=== PATIENT | female | born 1960 | race Caucasian/White ===

== ENCOUNTER 2021-04-19 15:07 | Emergency (ER) | payer OTHER ==
--- NOTE | 2021-04-19 17:30 | ED ---
General Adult HPI - General Stated complaint: Blood Clot Time Seen by Provider: 04/19/21 17:26 - History of Present Illness Initial comments: 61 year-old female patient presents to the emergency department for evaluation of bilateral lower leg pain and swelling. She did recently have long flights. She is concerned about blood clots. Denies fever or chills. 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 Denies taking blood thinners currently. Denies history of alcohol or tobacco use. - Related Data Home Medications Medication Instructions Recorded Confirmed Acetaminophen Tab [Tylenol Tab] 500 mg PO Q6H PRN 04/19/21 04/19/21 Ascorbic Acid [Vitamin C] 1,000 mg PO DAILY 04/19/21 04/19/21 Cyanocobalamin [Vitamin B-12 1,000 mcg SQ Q30D 04/19/21 04/19/21 Injection] FLUoxetine HCL [PROzac] 20 mg PO DAILY 04/19/21 04/19/21 HYDROcodone/APAP 5-325MG [[place] 1 tab PO QID PRN 04/19/21 04/19/21 5-325] Melatonin 20 mg PO HS 04/19/21 04/19/21 Multivitamins, Thera [Multivitamin 1 tab PO DAILY 04/19/21 04/19/21 (formulary)] Naproxen Sodium [Aleve] 220 mg PO BID 04/19/21 04/19/21 Vitamin B Complex 1 cap PO DAILY 04/19/21 04/19/21 Vitamin E 400 unit PO DAILY 04/19/21 04/19/21 Zinc 50 mg PO DAILY 04/19/21 04/19/21 hydroCHLOROthiazide [Hydrodiuril] 25 mg PO DAILY 04/19/21 04/19/21 Previous Rx's Medication Instructions Recorded Potassium Chloride ER [K-Dur 10] 10 meq PO DAILY #10 tab 04/19/21 Allergies Allergy/AdvReac Type Severity Reaction Status Date / Time No Known Allergies Allergy Verified 04/19/21 19:14 Review of Systems ROS Statement: Those systems with pertinent positive or pertinent negative responses have been documented in the HPI. ROS Other: All systems not noted in ROS Statement are negative. General Exam General appearance: alert, in no apparent distress, other (This is a well- nourished adult female patient in no acute distress.) ENT exam: Present: normal exam, normal oropharynx, mucous membranes moist Respiratory exam: Present: normal lung sounds bilaterally. Absent: respiratory distress, wheezes, rales, rhonchi, stridor Cardiovascular Exam: Present: regular rate, normal rhythm, normal heart sounds. Absent: systolic murmur, diastolic murmur, rubs, gallop, clicks GI/Abdominal exam: Present: soft, normal bowel sounds. Absent: distended, tenderness, guarding, rebound, rigid Extremities exam: Present: full ROM, normal capillary refill, other (There is 2+ pitting edema noted to the bilateral lower legs and feet. Skin is otherwise warm, pink, and dry. Pedal and posttibial pulses 2+.). Absent: tenderness, pedal edema, joint swelling, calf tenderness Neurological exam: Present: alert, oriented X3, CN II-XII intact Psychiatric exam: Present: normal affect, normal mood Skin exam: Present: warm, dry, intact, normal color. Absent: rash Course Vital Signs 04/19/21 04/19/21 17:20 21:02 Temperature 99.1 F Pulse Rate 97 104 H Respiratory 20 Rate Blood Pressure 178/102 151/99 O2 Sat by Pulse 100 96 Oximetry EKG Findings - EKG Comments: EKG Findings:: EKG obtained at 1843 shows sinus rhythm with, ventricular rate is 91, KY interval 158, QRS duration 92, QTc 446, QTC 548. No evidence of ST elevation or depression. Medical Decision Making - Medical Decision Making 61-year-old female patient presents for evaluation of bilateral lower extremity swelling and pain. She is concerned she may have blood clot. Physical examination did reveal 2+ pitting edema. EKG showed normal sinus rhythm. Potassium is 3.0. BNP elevated at 2550. Chest x-ray shows no pulmonary vascular congestion or cardiomegaly. She tested negative for bilateral lower extremity ultrasound Dopplers for DVT. I did discuss findings and results with her. She given a dose of Lasix here. Potassium will be replaced virtually put on 10 mEq of Dana Dur for the next 7-10 days. She is instructed to follow-up with forensic sergeant for echocardiogram and further evaluation of her elevated BNP. She is given ART hose. Instructed to keep her legs elevated. Return parameters were discussed in detail. She verbalizes understanding and agrees with this plan. My attending is Dr. Macias. - Lab Data Result diagrams: 04/19/21 20:39 04/19/21 20:39 Lab Results 04/19/21 04/19/21 04/19/21 Range/Units 20:39 20:39 20:39 WBC 6.6 (3.8-10.6) k/uL RBC 4.20 (3.80-5.40) m/uL Hgb 13.5 (11.4-16.0) gm/dL Hct 40.9 (34.0-46.0) % MCV 97.5 (80.0-100.0) fL MCH 32.2 (25.0-35.0) pg MCHC 33.1 (31.0-37.0) g/dL RDW 13.3 (11.5-15.5) % Plt Count 281 (150-450) k/uL MPV 8.0 Neutrophils % 59 % Lymphocytes % 29 % Monocytes % 5 % Eosinophils % 4 % Basophils % 1 % Neutrophils # 3.9 (1.3-7.7) k/uL Lymphocytes # 1.9 (1.0-4.8) k/uL Monocytes # 0.3 (0-1.0) k/uL Eosinophils # 0.2 (0-0.7) k/uL Basophils # 0.0 (0-0.2) k/uL Sodium 135 L (137-145) mmol/L Potassium 3.0 L (3.5-5.1) mmol/L Chloride 95 L (98-107) mmol/L Carbon Dioxide 27 (22-30) mmol/L Anion Gap 13 mmol/L BUN 20 H (7-17) mg/dL Creatinine 0.57 (0.52-1.04) mg/dL Est GFR (CKD-EPI)AfAm >90 (>60 ml/min/1.73 sqM) Est GFR (CKD-EPI)NonAf >90 (>60 ml/min/1.73 sqM) Glucose 102 H (74-99) mg/dL Calcium 9.3 (8.4-10.2) mg/dL Total Bilirubin 1.3 (0.2-1.3) mg/dL AST 35 (14-36) U/L ALT 27 (4-34) U/L Alkaline Phosphatase 178 H (38-126) U/L NT-Pro-B Natriuret Pep 2550 pg/mL Total Protein 6.5 (6.3-8.2) g/dL Albumin 3.8 (3.5-5.0) g/dL - Radiology Data Radiology results: report reviewed, image reviewed 2 views of the chest are obtained. Report was reviewed in its entirety. Impression by Dr. Haskins shows no active cardiopulmonary disease. Normal heart. Venous Doppler duplex of the bilateral lower extremities is obtained. Report was reviewed in its entirety. Impression by Dr. Haskins shows no evidence of DVT in the veins admission at this time. Disposition Clinical Impression: Lower extremity edema, Elevated brain natriuretic peptide (BNP) level Disposition: HOME SELF-CARE Condition: Good Instructions (If sedation given, give patient instructions): Leg Edema (ED) Additional Instructions: Take potassium supplement. Follow-up with cardiology as soon as possible. You are BNP level was 2500. Limit fluids. Follow-up with your primary care physician for recheck in 1-2 days. Return for any new, worsening, or concerning symptoms. Prescriptions: Potassium Chloride ER [K-Dur 10] 10 meq PO DAILY #10 tab Is patient prescribed a controlled substance at d/c from ED?: No Referrals: Dereje Bullock MD [STAFF PHYSICIAN] - 1-2 days Time of Disposition: 22:31
[2021-04-19 17:31] VITALS: TEMP 99.1
--- NOTE | 2021-04-19 19:25 | US ---
EXAMINATION TYPE: US venous doppler duplex LE DATE OF EXAM: 04/19/2021 6:43 PM COMPARISON: NONE CLINICAL HISTORY: sylvester leg pain and swelling. Leg pain and swelling. Hx DVT, PE. Patient not taking bl ood thinners. SIDE PERFORMED: Bilateral TECHNIQUE: The lower extremity deep venous system is examined utilizing real time linear array sonog derrek with graded compression, doppler sonography and color-flow sonography. VESSELS IMAGED: Common Femoral Vein Deep Femoral Vein Greater Saphenous Vein * Femoral Vein Popliteal Vein Small Saphenous Vein * Proximal Calf Veins (* superficial vessels) Exam is slightly limited due to edema. Right Leg: No evidence of DVT in veins imaged at this time. Left Leg: Hypoechoic, heterogeneous area seen within the left groin anterior to the common femoral v essels measuring 1.9 x 1.5 x 0.8 cm. No evidence of DVT in veins imaged at this time. IMPRESSION: No sign of deep vein thrombosis in both legs.
--- NOTE | 2021-04-19 20:35 | XR ---
EXAMINATION TYPE: XR chest 2V DATE OF EXAM: 04/19/2021 COMPARISON: NONE HISTORY: Swelling TECHNIQUE: 2 view FINDINGS: There is no heart failure nor confluent pneumonic infiltrate. Costophrenic angles are clear . Bony thorax is intact. IMPRESSION: No active cardiopulmonary disease. Normal heart.
[2021-04-19 20:50] LABS: Basophils % (A) 1 %; Eosinophils # (A) 0.2 k/uL (0-0.7); Eosinophils % (A) 4 %; HCT 40.9 % (34.0-46.0); HGB 13.5 gm/dL (11.4-16.0); Lymphocytes # (A) 1.9 k/uL (1.0-4.8); Lymphocytes % (A) 29 %; MCH 32.2 pg (25.0-35.0); MCHC 33.1 g/dL (31.0-37.0); MCV 97.5 fL (80.0-100.0); Monocytes # (A) 0.3 k/uL (0-1.0); Monocytes % (A) 5 %; Neutrophils # (A) 3.9 k/uL (1.3-7.7); Neutrophils % (A) 59 %; Platelet Count 281 k/uL (150-450); RDW 13.3 % (11.5-15.5); WBC 6.6 k/uL (3.8-10.6)
[2021-04-19 21:01] LABS: ALT 27 U/L (4-34); AST 35 U/L (14-36); African American GFR (CKD) >90 (>60 ml/min/1.73 sqM); Albumin 3.8 g/dL (3.5-5.0); Alkaline Phosphatase 178 U/L (38-126); Anion Gap 13 mmol/L; Blood Urea Nitrogen 20 mg/dL (7-17); Calcium 9.3 mg/dL (8.4-10.2); Carbon Dioxide 27 mmol/L (22-30); Chloride 95 mmol/L (98-107); Glucose 102 mg/dL (74-99); Non-African American GFR(CKD) >90 (>60 ml/min/1.73 sqM); Sodium 135 mmol/L (137-145); Total Bilirubin 1.3 mg/dL (0.2-1.3); Total Protein 6.5 g/dL (6.3-8.2)
[2021-04-19] MEDS ORDERED: POTASSIUM CHLORIDE ER 20 MEQ TAB.ER PO STA (21:15)
[2021-04-19] MEDS ORDERED: FUROSEMIDE 40 MG TAB PO STA (22:31)
[2021-04-19 23:21] VITALS: BP 153/87; PULSE 101; RESP 18
== END 2021-04-19 23:21 | disposition home or self-care (01) ==
LOC: EC 15:07
DX: R60.0 Localized edema (principal); R79.0 Abnormal level of blood mineral
CPT/HCPCS: 36415; 71046; 80053; 83880; 85025; 93005; 93970; 99284

== ENCOUNTER 2021-04-20 03:29 | Inpatient (IN) | payer OTHER ==
[2021-04-20] MEDS ORDERED: LORazepam 2 MG/ML INJ IV STA (05:05)
--- NOTE | 2021-04-20 05:15 | ED ---
Chest Pain HPI - General Chief Complaint: Chest Pain Stated Complaint: recheck Time Seen by Provider: 04/20/21 03:42 Source: patient, EMS Mode of arrival: EMS Limitations: no limitations - History of Present Illness Initial Comments: This patient is a 61-year-old woman who returns emergency department for reevaluation this morning. She had been seen yesterday in the evening for bilateral leg edema, had studies and then cleared to return [place] see [place] physician [place]. The patient states that starting this morning between 1 and 2 AM she developed severe pressure in the substernal area. This occurred at rest. She stated that after a little bit it seemed to radiate into her neck. The patient reports that her blood pressure home was also elevated. They phoned EMS who arrived and the patient was still having pain. The transported her here but she states the pain had resolved prior to her arrival here. She also was having some shortness of breath. Patient denies other symptoms. The patient notes that she does have history of some mitral regurgitation from her last echocardiogram. She also had a heart catheteriza tion probably about a year ago and was told that she had essentially normal coronary arteries. MD Complaint: chest pain -: hour(s) Onset: during rest Pain Location: substernal Severity: severe Quality: aching Consistency: now resolved Improves With: nothing Worsens With: nothing Treatments Prior to Arrival: oxygen - Related Data Home Medications Medication Instructions Recorded Confirmed Acetaminophen Tab [Tylenol Tab] 500 mg PO Q6H PRN 04/19/21 04/19/21 Ascorbic Acid [Vitamin C] 1,000 mg PO DAILY 04/19/21 04/19/21 Cyanocobalamin [Vitamin B-12 1,000 mcg SQ Q30D 04/19/21 04/19/21 Injection] FLUoxetine HCL [PROzac] 20 mg PO DAILY 04/19/21 04/19/21 HYDROcodone/APAP 5-325MG [[place] 1 tab PO QID PRN 04/19/21 04/19/21 5-325] Melatonin 20 mg PO HS 04/19/21 04/19/21 Multivitamins, Thera [Multivitamin 1 tab PO DAILY 04/19/21 04/19/21 (formulary)] Naproxen Sodium [Aleve] 220 mg PO BID 04/19/21 04/19/21 Vitamin B Complex 1 cap PO DAILY 04/19/21 04/19/21 Vitamin E 400 unit PO DAILY 04/19/21 04/19/21 Zinc 50 mg PO DAILY 04/19/21 04/19/21 hydroCHLOROthiazide [Hydrodiuril] 25 mg PO DAILY 04/19/21 04/19/21 Previous Rx's Medication Instructions Recorded Potassium Chloride ER [K-Dur 10] 10 meq PO DAILY #10 tab 04/19/21 Allergies Allergy/AdvReac Type Severity Reaction Status Date / Time No Known Allergies Allergy Verified 04/19/21 19:14 Review of Systems ROS Statement: Those systems with pertinent positive or pertinent negative responses have been documented in the HPI. ROS Other: All systems not noted in ROS Statement are negative. Constitutional: Denies: fever, chills Respiratory: Reports: dyspnea. Denies: cough Cardiovascular: Reports: as per HPI, chest pain. Denies: palpitations, orthopnea, edema, syncope Gastrointestinal: Denies: abdominal pain, vomiting, diarrhea, melena, hematochezia Genitourinary: Denies: dysuria, hematuria Musculoskeletal: Denies: back pain Skin: Denies: rash Neurological: Denies: headache, weakness, numbness Psychiatric: Reports: anxiety EKG Findings - EKG Results: EKG: interpreted by ERMD, sinus rhythm (Rate 91 bpm), normal axis, normal ST/T - Blocks, Ber[place], Hypertrophy, ST Abn: Chamber hypertrophy or enlargement: left atrial enlargement or conduction defect, right atrial enlargement or conduction defect, left ventricular hypertrophy or enlargement (LVE) Repolarization changes or abnormalities: Q-T interval prolongation Past Medical History Additional Past Medical History / Comment(s): Pluery, rotator cuff tear in the left, breast augmentation implant removal, blood clots, basal skin CA History of Any Multi-Drug Resistant Organisms: None Reported Past Surgical History: Cholecystectomy, Hysterectomy, Orthopedic Surgery Additional Past Surgical History / Comment(s): breast augmentation implant removal, bunions removed, cosmetic surgeries. Past Psychological History: Anxiety, Depression Smoking Status: Never smoker Past Alcohol Use History: Occasional Past Drug Use History: None Reported General Exam Limitations: no limitations General appearance: alert, in no apparent distress, anxious Head exam: Present: atraumatic, normocephalic Eye exam: Present: normal appearance. Absent: scleral icterus, conjunctival injection ENT exam: Present: mucous membranes dry Neck exam: Present: normal inspection Respiratory exam: Present: normal lung sounds bilaterally. Absent: respiratory distress, wheezes, rales, rhonchi, stridor Cardiovascular Exam: Present: regular rate, normal rhythm, systolic murmur (Grade 3/6 systolic ejection murmur). Absent: diastolic murmur, rubs, gallop GI/Abdominal exam: Present: soft. Absent: distended, tenderness, guarding, rebound, rigid, mass Extremities exam: Present: normal inspection, normal capillary refill, pedal edema (Trace edema bilaterally). Absent: calf tenderness Back exam: Present: normal inspection. Absent: CVA tenderness (R), CVA tenderness (L) Neurological exam: Present: alert Skin exam: Present: warm, dry, intact, normal color. Absent: rash Course Vital Signs 04/20/21 04/20/21 04/20/21 03:32 04:29 05:15 Temperature 98.0 F Pulse Rate 107 H 102 H 101 H Respiratory 18 18 18 Rate Blood Pressure 131/85 130/85 144/77 O2 Sat by Pulse 98 96 98 Oximetry 04/20/21 06:41 Temperature Pulse Rate 101 H Respiratory 18 Rate Blood Pressure 133/93 O2 Sat by Pulse 96 Oximetry Chest Pain MDM - MDM Patient is 61-year-old woman here following episode of chest pain that appears to have resolved. She does have minimally elevated troponin. In light of this, patient be admitted under city call. Case also discussed with cardiology on-call, and recommendations are incorporated. Patient is started on heparin. Echocardiogram ordered. Patient remained symptom-free here. Disposition Clinical Impression: Acute coronary syndrome Disposition: ADMITTED IP TO THIS HOSP Is patient prescribed a controlled substance at d/c from ED?: No Referrals: Nonstaff,Physician [Primary Care Provider] - 1-2 days
--- NOTE | 2021-04-20 05:18 | XR ---
EXAMINATION TYPE: XR chest 1V portable DATE OF EXAM: 04/20/2021 COMPARISON: Yesterday HISTORY: Swelling. TECHNIQUE: Single view FINDINGS: There is no heart failure nor confluent pneumonic infiltrate. Costophrenic angles are clear . There are chest leads. There are no hilar masses. Bony thorax is intact. IMPRESSION: No active cardiopulmonary disease. No change.
[2021-04-20 05:28] LABS: Basophils % (A) 1 %; Eosinophils # (A) 0.2 k/uL (0-0.7); Eosinophils % (A) 4 %; HCT 39.6 % (34.0-46.0); HGB 13.6 gm/dL (11.4-16.0); Lymphocytes # (A) 1.5 k/uL (1.0-4.8); Lymphocytes % (A) 27 %; MCH 32.5 pg (25.0-35.0); MCHC 34.5 g/dL (31.0-37.0); MCV 94.3 fL (80.0-100.0); Mean Platelet Volume 8.6; Monocytes # (A) 0.4 k/uL (0-1.0); Monocytes % (A) 7 %; Neutrophils # (A) 3.3 k/uL (1.3-7.7); Neutrophils % (A) 59 %; Platelet Count 270 k/uL (150-450); RDW 12.6 % (11.5-15.5); WBC 5.6 k/uL (3.8-10.6)
[2021-04-20 05:39] LABS: ALT 27 U/L (4-34); AST 35 U/L (14-36); African American GFR (CKD) >90 (>60 ml/min/1.73 sqM); Albumin 3.7 g/dL (3.5-5.0); Alkaline Phosphatase 196 U/L (38-126); Amylase 38 U/L (30-110); Anion Gap 10 mmol/L; Blood Urea Nitrogen 21 mg/dL (7-17); Calcium 9.5 mg/dL (8.4-10.2); Carbon Dioxide 30 mmol/L (22-30); Chloride 96 mmol/L (98-107); Glucose 114 mg/dL (74-99); Lipase 120 U/L (23-300); Magnesium 1.4 mg/dL (1.6-2.3); Non-African American GFR(CKD) >90 (>60 ml/min/1.73 sqM); Sodium 136 mmol/L (137-145); Total Bilirubin 1.6 mg/dL (0.2-1.3); Total Protein 6.5 g/dL (6.3-8.2)
[2021-04-20] MEDS ORDERED: HEPARIN SODIUM 1,000 UN/ML (10ML VL) IV PRN (06:02)
[2021-04-20] MEDS ORDERED: HEPARIN SODIUM 1,000 UN/ML (10ML VL) IV ONE (06:02)
[2021-04-20] MEDS ORDERED: HEPARIN SOD,PORK IN 0.45% NACL 25,000 UNIT in 0.45% NACL 1 250ML.BAG IV SCH (06:15)
[2021-04-20 06:16] LABS: Partial Thromboplastin Time 22.9 sec (22.0-30.0); Prothrombin Time 10.9 sec (9.0-12.0)
[2021-04-20] MEDS ORDERED: MAGNESIUM SULFATE-D5W PMX 1 GM in DEXTROSE/WATER 1 100ML.BAG IVPB ONE (06:18)
[2021-04-20] MEDS ORDERED: POTASSIUM BICARBONATE/CIT AC 20 MEQ TABLET.EFF PO ONE (06:18)
[2021-04-20] MEDS ORDERED: NITROGLYCERIN SL TABS 0.4 MG TAB SUBLINGUAL PRN (06:51)
[2021-04-20] MEDS ORDERED: POTASSIUM BICARB-CITRIC ACID 25 MEQ TABLET.EFF PO ONE (07:30)
[2021-04-20] MEDS ORDERED: ALPRAZolam 0.25 MG TAB PO PRN (09:07)
[2021-04-20] MEDS ORDERED: ALPRAZolam 0.5 MG TAB PO PRN (09:07)
[2021-04-20] MEDS ORDERED: ATORVASTATIN 80 MG TAB PO STA (09:07)
[2021-04-20] MEDS: SODIUM CHLORIDE 0.9% 1,000 ML IV SCH (09:29)
--- NOTE | 2021-04-20 09:32 | ECHOF ---
Referral Reason:Acute coronary syndrome MEASUREMENTS -------- HEIGHT: 165.1 cm WEIGHT: 87.5 kg BP: RVIDd: 2.9 cm (< 3.3) IVSd: 1.8 cm (0.6 - 1.1) LVIDd: 3.7 cm (3.9 - 5.3) LVPWd: 2.4 cm (0.6 - 1.1) IVSs: 1.9 cm LVIDs: 3.6 cm LVPWs: 2.1 cm LA Diam: 3.9 cm (2.7 - 3.8) Ao Diam: 2.1 cm (2.0 - 3.7) FINDINGS -------- Sinus rhythm. TDS study pt has siclone breast inplants unable to get gradients on lvot and Aov. There is severe concentric left ventricular hypertrophy. Overall left ventricular systolic function is normal with, an EF between 60 - 65 %. The right ventricle is normal in size. The left atrium is mildly dilated. The right atrial size is normal. 5.0mg OF Lumason UTLIZED: 2 OR MORE WALL SEGMENTS NOT VISUALIZED. The aortic valve was not well visualized. The mitral valve was not well visualized. Mild mitral regurgitation is present. The tricuspid valve was not well visualized. Unable to estimate RVSP due to inadequate TR jet spect ral doppler profile. The pulmonic valve was not well visualized. CONCLUSIONS -------- 1. TDS study pt has siclone breast inplants unable to get gradients on lvot and Aov. 2. There is severe concentric left ventricular hypertrophy. 3. Overall left ventricular systolic function is normal with, an EF between 60 - 65 %. 4. The right ventricle is normal in size. 5. The left atrium is mildly dilated. 6. The right atrial size is normal. 7. 5.0mg OF Lumason UTLIZED: 2 OR MORE WALL SEGMENTS NOT VISUALIZED. 8. The aortic valve was not well visualized. 9. The mitral valve was not well visualized. 10. Mild mitral regurgitation is present. 11. The tricuspid valve was not well visualized. 12. Unable to estimate RVSP due to inadequate TR jet spectral doppler profile. 13. The pulmonic valve was not well visualized. MULTIPLE SPINDLE SCREW MACHINE OPERATOR: Komal Lora RDCS
[2021-04-20] MEDS ORDERED: ASPIRIN 325 MG TAB PO STA (09:46)
[2021-04-20] MEDS ORDERED: VERAPAMIL 2.5 MG/ML 2 ML AMP ONE (09:55)
[2021-04-20] MEDS ORDERED: LIDOCAINE 1% INJ 10MG/ML (20 ML MDV) ONE (09:55)
[2021-04-20] MEDS: SODIUM CHLORIDE 0.9% 1,000 ML in EMPTY BAG 1 BAG IV SCH ×2 (10:01→21:19)
[2021-04-20] MEDS ORDERED: Potassium Replacement Protocol 1 EACH MISC MISCELLANE PRN (10:07)
--- NOTE | 2021-04-20 10:15 | CONS ---
CONSULTATION CHIEF COMPLAINT: Chest pain. Ssuanne is a 61-year-old lady with history of hypertension, anxiety, depression and chronic back pain who lives in [place] but is visiting [place], as her uncle . She comes into hospital complaining of bilateral leg edema. She also complains of chest discomfort. Her chest pain is sharp, precordial, moderate intensity, a pressure-like sensation that radiated to her neck. She was initially in the emergency room with bilateral leg edema, went home and then came back again with chest pain. EKG shows sinus rhythm with nonspecific ST-T wave changes. Labs showed that her troponin is elevated at 0.2, BNP is elevated at 3000. Creatinine is normal at 0.7. Hemoglobin is normal at 13.6 with a platelet count of 270. At the time of my evaluation this morning, she appears comfortable at rest, hemodynamically stable and is chest-pain- free. Given her chest pain and elevated troponin, I am advising the patient to undergo cardiac catheterization to rule out significant obstructive CAD. She was explained risks, benefits and alternatives, understood and accepted. PAST MEDICAL HISTORY: Significant for hypertension and back pain. MEDICATIONS: Medications at home include HydroDIURIL, K-Dur, Aleve, [place], Prozac and ascorbic acid. ALLERGIES: SOYA NAVARRETE. FAMILY HISTORY: Negative for premature coronary artery disease. SOCIAL HISTORY: Negative for smoking, EtOH abuse or drug abuse. REVIEW OF SYSTEMS: HEENT is unremarkable. CARDIAC: As described above. RESPIRATORY: As described above. GI: Negative. GENITOURINARY: Negative. ALLERGY/IMMUNOLOGY: Negative. SKIN: Negative. MUSCULOSKELETAL: Significant for arthritis. PSYCHOSOCIAL: Negative. DERMATOLOGY: Negative. CONSTITUTIONAL: Negative. ONCOLOGICAL: Negative. BIT SHARPENER: Negative. Rest of the system review is not relevant. PHYSICAL EXAMINATION: Patient is comfortable at rest. Afebrile. Vital signs are stable. There is no jugular venous distention. Carotid upstroke is normal. There is no bruit. Chest exam reveals good air entry bilaterally. Heart exam reveals first and second heart sounds, an ejection systolic murmur in the aortic area. Abdomen is soft. Examination of extremities did not reveal any edema. Peripheral pulses are palpable. ASSESSMENT: 1. Non LR-[id number] myocardial infarction. 2. Valvular heart disease, probably aortic stenosis. 3. History of leg edema. PLAN: I am going to review the echocardiogram and proceed with cardiac catheterization after getting a COVID test on her. SEBASTIAN / ANTONION: [id number] /
[2021-04-20] MEDS ORDERED: HEPARIN SODIUM 1,000 UN/ML (10ML VL) ONE (10:33)
[2021-04-20] MEDS ORDERED: MIDAZOLAM 2 MG/2 ML VIAL IV ONE (10:38)
[2021-04-20] MEDS ORDERED: LIDOCAINE 1% INJ 10MG/ML (20 ML MDV) SQ ONE ×3 (10:38→10:41)
[2021-04-20] MEDS ORDERED: fentaNYL (PF) 50 MCG/ML 5 ML AMP IV ONE ×2 (10:38)
[2021-04-20] MEDS ORDERED: VERAPAMIL SYRINGE (5 MG/10 ML) INTRAARTER ONE ×3 (10:39→10:43)
[2021-04-20] MEDS ORDERED: POTASSIUM CHLORIDE ER 20 MEQ TAB.ER PO SCH (11:00)
[2021-04-20] MEDS ORDERED: IV FLUID CONTINUATION 1,000 ML IV ONE (11:02)
[2021-04-20] MEDS ORDERED: IOPAMIDOL-370 125ML BTL INJ ONE (11:03)
[2021-04-20] MEDS ORDERED: SODIUM CHLORIDE 0.9% 1,000 ML IV SCH (11:19)
--- NOTE | 2021-04-20 11:45 | CC ---
CARDIAC CATHETERIZATION REPORT INDICATION: Acute [id number]-elevation IL. PROCEDURE NOTE: After obtaining informed consent, left heart catheterization and coronary angiogram were performed via the right femoral artery using standard Shirlene catheters. Patient tolerated the procedure well without any obvious immediate complications. A femoral angiogram was performed and Angio-Seal will be deployed for hemostasis. Patient received moderate conscious sedation. Total sedation time was 30 minutes. I initially attempted vascular access from the right radial artery but was unsuccessful; hence I proceeded with femoral catheterization. FINDINGS: HEMODYNAMICS: Left ventricular end-diastolic pressure is 10 mm. There is no significant gradient across the aortic valve. LEFT VENTRICULOGRAM: Left ventriculogram was not performed. ANGIOGRAPHIC DATA: Left main coronary artery. Left main coronary artery is a normal-sized vessel and is free of stenosis. It divides into left anterior descending coronary artery, ramus intermedius and circumflex coronary artery. Ramus intermedius and circumflex coronary artery are free of significant disease. Mid LAD shows a 30% atherosclerotic plaque. Right coronary artery is a large dominant vessel and is free of significant disease. CONCLUSION: Mild to moderate nonobstructive disease involving mid LAD. PLAN: I reviewed angiographic data with the patient and advised her on risk factor modifications, including aspirin, statin, and I will start her on a beta dee, as her echo shows severe left ventricular hypertrophy. She needs cardiac followup when she returns to [place]. She is going to enroll herself with a acoustical carpenter there. SEBASTIAN / IRAM: [id number] /
[2021-04-20] MEDS ORDERED: RX INFO: IV CONTRAST WAS GIVEN 1 EACH MISC MISCELLANE PRN (13:05)
[2021-04-20] MEDS ORDERED: ACETAMINOPHEN TAB 500 MG TAB PO PRN (13:07)
[2021-04-20] MEDS: METOPROLOL SUCCINATE (ER) 25 MG TAB.ER.24H PO SCH (14:26)
[2021-04-20] MEDS: HYDROcodone/APAP 5-325MG 1 EACH TAB PO PRN ×2 (14:32→21:32)
[2021-04-20 15:39] LABS: African American GFR (CKD) >90 (>60 ml/min/1.73 sqM); Anion Gap 5 mmol/L; Blood Urea Nitrogen 30 mg/dL (7-17); Calcium 9.1 mg/dL (8.4-10.2); Carbon Dioxide 32 mmol/L (22-30); Chloride 98 mmol/L (98-107); Glucose 100 mg/dL (74-99); Non-African American GFR(CKD) >90 (>60 ml/min/1.73 sqM); Potassium 3.8 mmol/L (3.5-5.1); Sodium 135 mmol/L (137-145)
--- NOTE | 2021-04-20 16:01 | P.HPIM ---
History of Present Illness H&P Date: 04/20/21 Chief Complaint: chest pain 61-year-old woman with medical history of hypertension, mood disorder presented for lower extremity edema. Patient says that her legs have been swelling more than normal for her over the past several weeks, but upon arrival she had sudden onset substernal chest pain with an elevation of troponins, prompting her admission. Echocardiogram was negative for heart failure. Patient did undergo left heart catheterization today prior to my evaluation, which demonstrated nonobstructive coronary artery disease. Patient seen after her heart cathete rization, no longer complaining of pain. However, she wonders why her legs are swollen. Patient denies fevers, chills, nausea, vomiting, abdominal pain, palpitations, syncope, presyncope, cough, dyspnea, diarrhea, constipation, numbness/weakness of extremity. Review of Systems All Systems reviewed and pertinent positives and negatives noted in HPI, all other symptoms are negative Past Medical History Past Medical History: Coronary Artery Disease (CAD), Cancer, Deep Vein Thrombosis (DVT), GERD/Reflux, Pulmonary Embolus (PE) Additional Past Medical History / Comment(s): 2019 cardiac cath showed 10-20% blockage in LAD/pt, 04/2020 covid/pleurisy, bilateral PEs, DVT L leg, murmur, chronic back pain from fall/compression fracture L1, esophagitis, benign colon polyp, hypokalemia, low B12, bronchitis, basal cell skin cancer removed from back and has another "spot". History of Any Multi-Drug Resistant Organisms: None Reported Past Surgical History: Bariatric Surgery, Breast Surgery, Cholecystectomy, Hysterectomy, Orthopedic Surgery Additional Past Surgical History / Comment(s): 2019 cardiac cath at [facility] in [facility], breast augmentation/complication and removed then recently redone, L shoulder rotator cuff repair, bilateral feet bunionectomies/hammer toe surgeries, gastric bypass, panniculectomy, skin cancer removal, EGD, colonoscopies. Past Anesthesia/Blood Transfusion Reactions: No Reported Reaction Smoking Status: Never smoker - Past Family History Mother History Unknown: Yes Father Family Medical History: Coronary Artery Disease (CAD), Hypertension, Myocardial Infarction (HI) Additional Family Medical History / Comment(s): Father had his first HI at the age of 52 yrs, he had CABG at the age of 62 years Medications and Allergies Home Medications Medication Instructions Recorded Confirmed Type Acetaminophen Tab [Tylenol Tab] 500 mg PO Q6H PRN 04/19/21 04/20/21 History Ascorbic Acid [Vitamin C] 1,000 mg PO DAILY 04/19/21 04/20/21 History Cyanocobalamin [Vitamin B-12 1,000 mcg SQ Q30D 04/19/21 04/20/21 History Injection] FLUoxetine HCL [PROzac] 20 mg PO DAILY 04/19/21 04/20/21 History HYDROcodone/APAP 5-325MG [[place] 1 tab PO QID PRN 04/19/21 04/20/21 History 5-325] Melatonin 20 mg PO HS 04/19/21 04/20/21 History Multivitamins, Thera [Multivitamin 1 tab PO DAILY 04/19/21 04/20/21 History (formulary)] Naproxen Sodium [Aleve] 220 mg PO BID 04/19/21 04/20/21 History Potassium Chloride ER [K-Dur 10] 10 meq PO DAILY #10 tab 04/19/21 04/20/21 Rx Vitamin B Complex 1 cap PO DAILY 04/19/21 04/20/21 History Vitamin E 400 unit PO DAILY 04/19/21 04/20/21 History Zinc 50 mg PO DAILY 04/19/21 04/20/21 History hydroCHLOROthiazide [Hydrodiuril] 25 mg PO DAILY 04/19/21 04/20/21 History Cholecalciferol (Vitamin D3) 125 mcg PO DAILY 04/20/21 04/20/21 History [Vitamin D3 (125 MCG = 5,000 IU)] Allergies Allergy/AdvReac Type Severity Reaction Status Date / Time soybean Allergy Unknown Verified 04/20/21 08:31 Childhood Physical Exam Osteopathic Statement: *. No significant issues noted on an osteopathic structural exam other than those noted in the History and Physical/Consult. Vitals: Vital Signs Temp Pulse Pulse Pulse Resp BP BP 04/20/21 14:30 98.5 F 99 16 118/78 04/20/21 14:02 98 F 97 20 109/77 04/20/21 13:04 92 16 137/79 04/20/21 12:00 106 H 16 107/58 04/20/21 09:07 96.8 F L 98 16 129/66 04/20/21 06:41 101 H 18 133/93 04/20/21 05:15 101 H 18 144/77 04/20/21 04:29 102 H 18 130/85 04/20/21 03:32 98.0 F 107 H 18 131/85 Pulse Ox 04/20/21 14:30 97 04/20/21 14:02 97 04/20/21 13:04 98 04/20/21 12:00 98 04/20/21 09:07 100 04/20/21 06:41 96 04/20/21 05:15 98 04/20/21 04:29 96 04/20/21 03:32 98 Intake and Output 04/20/21 04/20/21 04/20/21 06:59 14:59 22:59 Intake Total 740 Balance 740 Intake: IV 500 Oral 240 Other: Weight 87.543 kg 87.543 kg Gen: awake, alert HEENT: normocephalic, atraumatic, good hearing acuity, moist mucous membranes Resp: good air exchange, breathing comfortably with no accessory muscle use CVS: good distal perfusion x 4, GI: soft, NTTP, ND : no SPT, no CVAT, gong catheter not present MSK: Bilateral pitting edema, no clubbing Neuro: non-focal, moving all extremities Psych: cooperative, euthymic mood Results CBC & Chem 7: 04/20/21 04:19 04/20/21 15:20 Labs: Abnormal Lab Results - Last 24 Hours (Table) 04/20/21 04/20/21 04/20/21 Range/Units 04:19 04:19 04:19 D-Dimer 0.85 H (<0.60) mg/L FEU Sodium 136 L (137-145) mmol/L Potassium 3.0 L (3.5-5.1) mmol/L Chloride 96 L (98-107) mmol/L Carbon Dioxide (22-30) mmol/L BUN 21 H (7-17) mg/dL Glucose 114 H (74-99) mg/dL Magnesium 1.4 L (1.6-2.3) mg/dL Total Bilirubin 1.6 H (0.2-1.3) mg/dL Alkaline Phosphatase 196 H (38-126) U/L Troponin I 0.214 H* (0.000-0.034) ng/mL 04/20/21 04/20/21 04/20/21 Range/Units 08:49 10:09 15:20 D-Dimer (<0.60) mg/L FEU Sodium 135 L (137-145) mmol/L Potassium (3.5-5.1) mmol/L Chloride (98-107) mmol/L Carbon Dioxide 32 H (22-30) mmol/L BUN 30 H (7-17) mg/dL Glucose 100 H (74-99) mg/dL Magnesium (1.6-2.3) mg/dL Total Bilirubin (0.2-1.3) mg/dL Alkaline Phosphatase (38-126) U/L Troponin I 0.206 H* 0.179 H* (0.000-0.034) ng/mL Thrombosis Risk Factor Assmnt - Choose All That Apply Any of the Below Risk Factors Present?: Yes Each Factor Represents 1 point: Obesity (BMI >25) Other Risk Factors: Yes Each Risk Factor Represents 2 Points: Age 61-74 years, Malignancy Other congenital or acquired thrombophilia - If yes, enter type in comment: No Thrombosis Risk Factor Assessment Total Risk Factor Score: 5 Thrombosis Risk Factor Assessment Level: High Risk Assessment and Plan Assessment: Nonobstructive coronary artery disease Lower extremity edema -Admit inpatient, telemetry -Cardiology consult -Metoprolol -Aspirin, statin -Heparin drip discontinued after the cath -Nitroglycerin when necessary -Hold home hydrochlorothiazide -Troponins have peaked, can stop trending Hypertension Mood disorder -Hold home hydrochlorothiazide, started metoprolol -Continue home Prozac -Hold home naproxen Patient is a full code
[2021-04-20] MEDS: MELATONIN 5 MG TABLET PO SCH (21:30)
[2021-04-21] MEDS: SODIUM CHLORIDE 0.9% 1,000 ML IV SCH (05:34)
[2021-04-21] MEDS: SODIUM CHLORIDE 0.9% 1,000 ML in EMPTY BAG 1 BAG IV SCH (05:35)
[2021-04-21] MEDS: HYDROcodone/APAP 5-325MG 1 EACH TAB PO PRN (06:00)
[2021-04-21] MEDS ORDERED: HEPARIN SODIUM,PORCINE 2,500 UNIT in SODIUM CHLORIDE 0.9% 250 ML IRRIGATION PRN (07:00)
[2021-04-21] MEDS ORDERED: HEPARIN SODIUM,PORCINE 10,000 UNIT in SODIUM CHLORIDE 0.9% 1,000 ML IRRIGATION PRN (07:00)
[2021-04-21 07:27] LABS: Basophils % (A) 1 %; Eosinophils # (A) 0.4 k/uL (0-0.7); Eosinophils % (A) 7 %; HGB 12.9 gm/dL (11.4-16.0); Lymphocytes % (A) 20 %; MCH 31.8 pg (25.0-35.0); MCV 96.4 fL (80.0-100.0); Monocytes # (A) 0.3 k/uL (0-1.0); Monocytes % (A) 6 %; Neutrophils # (A) 3.2 k/uL (1.3-7.7); Neutrophils % (A) 64 %; Platelet Count 226 k/uL (150-450); RBC 4.04 m/uL (3.80-5.40); RDW 12.6 % (11.5-15.5); WBC 5.1 k/uL (3.8-10.6)
[2021-04-21 07:56] LABS: Prothrombin Time 10.3 sec (9.0-12.0)
[2021-04-21] MEDS ORDERED: NON FORMULARY DRUG (Vitamin B Complex [Vitamin B Complex] 1 EACH Capsule) PO SCH (09:00)
[2021-04-21] MEDS ORDERED: ASPIRIN 325 MG TAB PO SCH (09:00)
--- NOTE | 2021-04-21 09:13 | P.PN ---
Subjective This is a 61-year-old female with a past medical history of mild nonobstructive coronary artery disease, hypertension, anxiety, depression, chronic back pain. She lives in [place] but has visiting [place]. She did see a wood heel finisher in 2019 had a catheterization in 04/2020 with mild disease and was told she had mitral regurgitation and LVH. Patient presented to the emergency department with chest pain. Patient had elevated troponin 0.2. BNP elevated at 3000. Cardiac catheterization was recommended. Patient underwent cardiac catheterization with Dr. Duron which revealed mid LAD shows a 30% stenosis, no other significant disease. Echocardiogram revealed EF 60-65%, severe LVH, mitral valve not well visualized, aortic valve not well visualized. Patient seen and examined at bedside, no acute distress. She is currently maintained on aspirin 81 mg daily, atorvastatin 40 mg daily, metoprolol succinate 25 mg daily. Labs reviewed, CBC Unremarkable, BMP pending. Vitals: Reviewed GENERAL: Well-appearing, well-nourished and in no acute distress. NECK: Supple without JVD or thyromegaly. LUNGS: Breath sounds clear to auscultation bilaterally. Respiration equal and unlabored. No wheezes, rales or rhonchi. HEART: Regular rate and rhythm, systolic ejection murmur right sternal border. S1 and S2 heard. EXTREMITIES: Normal range of motion, no edema. No clubbing or cyanosis. Peripheral pulses intact. SKIN: Right femoral cath site, clean, dry intact, no significant hematoma 2+ peripheral pulses. ASSESSMENT Chest pain Cardiac catheterization 04/20/21 which revealed mild to moderate non-obstructive coronary artery disease involving the mid LAD History of hypertension Left ventricular hypertrophy PLAN From a cardiology perspective, patient is stable to be discharged home on current medication regimen with aspirin, statin and beta dee. Follow up with her wood heel finisher in [facility] in 1-2 weeks. Nurse Practitioner note has been reviewed, I agree with a documented findings and plan of care. Patient was seen and examined. Objective - Vital Signs Vital signs: Vital Signs Temp 98.5 F 04/20/21 14:30 Pulse 99 04/20/21 14:30 Resp 16 04/20/21 14:30 BP 118/78 04/20/21 14:30 Pulse Ox 97 04/20/21 14:30 Intake & Output 04/19/21 04/20/21 04/20/21 18:59 06:59 18:59 Intake Total 440 Balance 440 Weight 87.543 kg 87.543 kg Intake: IV 200 Oral 240 - Labs CBC & Chem 7: 04/21/21 07:13 04/20/21 15:20 Labs: Abnormal Lab Results - Last 24 Hours (Table) 04/20/21 04/20/21 04/20/21 Range/Units 04:19 04:19 04:19 D-Dimer 0.85 H (<0.60) mg/L FEU Sodium 136 L (137-145) mmol/L Potassium 3.0 L (3.5-5.1) mmol/L Chloride 96 L (98-107) mmol/L BUN 21 H (7-17) mg/dL Glucose 114 H (74-99) mg/dL Magnesium 1.4 L (1.6-2.3) mg/dL Total Bilirubin 1.6 H (0.2-1.3) mg/dL Alkaline Phosphatase 196 H (38-126) U/L Troponin I 0.214 H* (0.000-0.034) ng/mL 04/20/21 04/20/21 Range/Units 08:49 10:09 D-Dimer (<0.60) mg/L FEU Sodium (137-145) mmol/L Potassium (3.5-5.1) mmol/L Chloride (98-107) mmol/L BUN (7-17) mg/dL Glucose (74-99) mg/dL Magnesium (1.6-2.3) mg/dL Total Bilirubin (0.2-1.3) mg/dL Alkaline Phosphatase (38-126) U/L Troponin I 0.206 H* 0.179 H* (0.000-0.034) ng/mL
[2021-04-21] MEDS: ASCORBIC ACID 500 MG TAB PO SCH (09:19)
[2021-04-21] MEDS: VITAMIN E (DL,TOCOPHERYL ACET) 400 UNIT (180 MG) CAP PO SCH (09:20)
[2021-04-21] MEDS: POTASSIUM CHLORIDE ER 10 MEQ TAB.ER.PRT PO SCH (09:20)
[2021-04-21] MEDS: FLUoxetine HCL 20 MG CAP PO SCH (09:20)
[2021-04-21] MEDS: CHOLECALCIFEROL 125 MCG (5000 IU) TABLET PO SCH (09:20)
[2021-04-21] MEDS: METOPROLOL SUCCINATE (ER) 25 MG TAB.ER.24H PO SCH (09:20)
[2021-04-21] MEDS: MULTIVITAMINS, THERA 1 EACH TAB PO SCH (09:20)
[2021-04-21] MEDS: ATORVASTATIN 40 MG TAB PO SCH (09:20)
[2021-04-21] MEDS: ASPIRIN 81 MG PO SCH (09:20)
[2021-04-21] MEDS: ZINC SULFATE 220 MG CAP PO SCH (09:22)
[2021-04-21 11:01] LABS: HDL Cholesterol 92.7 mg/dL (40.00-60.00); Triglycerides 49.4 mg/dL (0.00-149.00)
[2021-04-21 11:15] LABS: Chol/HDL Ratio 2.31 Ratio
--- NOTE | 2021-04-21 12:10 | P.DS ---
Providers Date of admission: 04/20/21 06:51 Expected date of discharge: 04/21/21 Attending physician: Onelia Narvaez MD Consults: 04/20/21 06:51 Consult Physician Urgent Consulting Provider: Zoila Doe Consult Reason/Comments: Acute Coronary syndrome Do you want consulting provider notified?: Yes Primary care physician: Physician Nonstaff Hospital Course: Nonobstructive coronary artery disease Lower extremity edema Hypertrophic Cardiomyopathy -Admitted inpatient, telemetry. Cardiology consulted, patient underwent LHC on 04/20, which showed non-obstructive CAD. Pts heparin gtt was stopped following cath. Pt will be treated with ASA, statin, metoprolol. Pts home HCTZ was held and d/c'd on discharge. Pt will f/u with a rate supervisor in her home [facility]. Hypertension Mood disorder -Hold home hydrochlorothiazide, started metoprolol on discharge -Continued home Prozac on discharge -Discontinued home naproxen I spent 31 minutes coordinating this discharge. Assessment: Gen: awake, alert HEENT: normocephalic, atraumatic, good hearing acuity, moist mucous membranes Resp: good air exchange, breathing comfortably with no accessory muscle use CVS: good distal perfusion x 4, GI: soft, NTTP, ND : no SPT, no CVAT, gong catheter not present MSK: Bilateral pitting edema, no clubbing Neuro: non-focal, moving all extremities Psych: cooperative, euthymic mood Patient Condition at Discharge: Good Plan - Discharge Summary Discharge Rx Participant: No New Discharge Prescriptions: New Aspirin 81 mg PO DAILY #30 tab Atorvastatin [Lipitor] 40 mg PO HS #30 tab Nitroglycerin Sl Tabs [Nitrostat] 0.4 mg SUBLINGUAL Q5M PRN #30 tab PRN Reason: Chest Pain Metoprolol Succinate (ER) [Toprol XL] 25 mg PO DAILY #30 tab Continue Vitamin B Complex 1 cap PO DAILY Ascorbic Acid [Vitamin C] 1,000 mg PO DAILY Zinc 50 mg PO DAILY Vitamin E 400 unit PO DAILY Multivitamins, Thera [Multivitamin (formulary)] 1 tab PO DAILY Melatonin 20 mg PO HS FLUoxetine HCL [PROzac] 20 mg PO DAILY Cyanocobalamin [Vitamin B-12 Injection] 1,000 mcg SQ Q30D Potassium Chloride ER [K-Dur 10] 10 meq PO DAILY #10 tab Cholecalciferol (Vitamin D3) [Vitamin D3 (125 MCG = 5,000 IU)] 125 mcg PO DAILY Acetaminophen Tab [Tylenol] 500 mg PO Q6H PRN PRN Reason: Pain HYDROcodone/APAP 5-325MG [[place] 5-325] 1 tab PO QID PRN PRN Reason: Pain Discontinued Naproxen Sodium [Aleve] 220 mg PO BID hydroCHLOROthiazide [Hydrodiuril] 25 mg PO DAILY Discharge Medication List Acetaminophen Tab [Tylenol] 500 mg PO Q6H PRN 04/19/21 [History] Ascorbic Acid [Vitamin C] 1,000 mg PO DAILY 04/19/21 [History] Cyanocobalamin [Vitamin B-12 Injection] 1,000 mcg SQ Q30D 04/19/21 [History] FLUoxetine HCL [PROzac] 20 mg PO DAILY 04/19/21 [History] HYDROcodone/APAP 5-325MG [[place] 5-325] 1 tab PO QID PRN 04/19/21 [History] Melatonin 20 mg PO HS 04/19/21 [History] Multivitamins, Thera [Multivitamin (formulary)] 1 tab PO DAILY 04/19/21 [History] Potassium Chloride ER [K-Dur 10] 10 meq PO DAILY #10 tab 04/19/21 [Rx] Vitamin B Complex 1 cap PO DAILY 04/19/21 [History] Vitamin E 400 unit PO DAILY 04/19/21 [History] Zinc 50 mg PO DAILY 04/19/21 [History] Cholecalciferol (Vitamin D3) [Vitamin D3 (125 MCG = 5,000 IU)] 125 mcg PO DAILY 04/20/21 [History] Aspirin 81 mg PO DAILY #30 tab 04/21/21 [Rx] Atorvastatin [Lipitor] 40 mg PO HS #30 tab 04/21/21 [Rx] Metoprolol Succinate (ER) [Toprol XL] 25 mg PO DAILY #30 tab 04/21/21 [Rx] Nitroglycerin Sl Tabs [Nitrostat] 0.4 mg SUBLINGUAL Q5M PRN #30 tab 04/21/21 [Rx] Follow up Appointment(s)/Referral(s): Nonstaff,Physician [Primary Care Provider] - 1-2 days Valdemar Duron MD [STAFF PHYSICIAN] - 1 Week Patient Instructions/Handouts: *Surgery [facility] - After Heart Catheterization - Radiopharmacist Instructions, Left Heart Catheterization (DC), Procedural Sedation (ED), Angio-Seal (DC) Activity/Diet/Wound Care/Special Instructions: Follow up with Practice Billing Associate in [place] in 1-2 weeks.
--- NOTE | 2021-04-21 12:58 | CT ---
EXAMINATION TYPE: CT chest angio for PE DATE OF EXAM: 04/21/2021 COMPARISON: None HISTORY: Lower extremity edema. CT DLP: 423.5 mGycm Automated exposure control for dose reduction was used. CONTRAST: CT Chest for pulmonary embolism performed with with IV Contrast, patient injected with 100 mL of Isov ue 370. FINDINGS: LUNGS: Subsegmental changes seen posteriorly along the cerebral atelectasis. No pleural effusion or pneumothorax. Mild interlobular septal thickening involving the lung bases sug gestive of chronic interstitial lung disease. Sub-5 mm subpleural nodularity likely benign. Correlate for mild COPD MEDIASTINUM: There is no organomegaly or abdominal or thickening of the left upper lobe segmental bra nch centimeters low-attenuation is noted on axial image 65. Heart is prominent in size and is coronar y artery calcium. Atherosclerotic change aorta. There is. There are no greater than 1 cm hilar or mediastinal lymph nodes. No pericardial effusion is seen. OTHER: Bilateral breast prostheses. Hypertrophic degenerative changes spine. Hypodensity within the left lobe of liver is too small to characterize. Previous gastric surgery seen with suggestion small hiatal hernia. IMPRESSION: 1. There is no low density along the peripheral margin of the left upper lobe segmental branch could represent a 1. Chronic pulmonary embolism. Small component of acute pulmonary embolism not excluded c orrelate clinically. 2. COPD and chronic interstitial lung disease. 3. Indeterminate left hepatic lesion correlate with short-term follow-up ultrasound.
[2021-04-21] MEDS ORDERED: HEPARIN SODIUM 1,000 UN/ML (10ML VL) IV ONE (13:27)
[2021-04-21] MEDS ORDERED: HEPARIN SODIUM 1,000 UN/ML (10ML VL) IV PRN (13:27)
[2021-04-21] MEDS: HEPARIN SOD,PORK IN 0.45% NACL 25,000 UNIT in 0.45% NACL 1 250ML.BAG IV SCH (14:17)
[2021-04-21] MEDS ORDERED: PHENAZOPYRIDINE 100 MG TAB PO SCH (16:00)
--- NOTE | 2021-04-21 17:38 | P.CNPUL ---
History of Present Illness Consult date: 04/21/21 Requesting physician: Jordon Curran Reason for consult: pulmonary embolism Chief complaint: Lower extremity swelling, intermittent palpitations, shortness of breath History of present illness: This is a 61-year-old female with history of multiple medical problems including coronary artery disease, history of deep vein thrombosis, history of pulmonary embolism, patient presented to the ER [facility] on 04/19/21, she was complaining of a sudden onset of bilateral lower extremity pain and swelling. Patient had a recent long flight she was concerned about deep vein thromboses and legs, and [facility] felt that her feet were turning purple. Patient had venous Doppler which came back negative for deep vein thromboses. Patient used to be on anticoagulation therapy in the past, but has not taken any anticoagulation medication in many years. Patient was discharged home, however she was reevaluated in the ER on the which is 24 hours later complaining of severe pressure in the substernal area which occurred at rest. Patient also felt the pain was radiating to the neck, and she also felt that her heart was racing. He is a nurse, and she is certain she must have had an episode of atrial fibrillation with RVR. At any rate patient was seen by cardiology on consultation, although she had a previous normal cardiac catheterization about a year ago, patient had another cardiac catheterization this time, and she was found to have mild coronary artery disease, LAD of 50% atherosclerotic plaque. Mild to moderate nonobstructive disease involving the mid LAD, left main was normal. And no major significant abnormality overall was noted on her cardiac catheterization. At any rate patient was cleared by cardiology for discharge however a CT angiogram of the chest was performed were and there was evidence of low density along the peripheral margin of the left upper lobe segmental branch could represent a chronic pulmonary embolism or small component of acute pulmonary embolism not excluded. Radiologist seems to be quite concerned, hence this consult was initiated. Patient is presently asymptomatic, however after reviewing the findings on the CT angiogram of the chest, I basically recommended that the patient goes on oral anticoagulation therapy in the form of Eliquis or Xarelto and should have a repeat CT of the chest in 3 months. Patient will be flying back on of town soon and this could be done by her director case on outpatient basis in 3 months. Again I am strongly recommending anticoagulations therapy considering the history and considering the presentation as well as the CT angiogram of the chest. Not to mention the patient did have previous history of DVT and pulmonary embolism. Review of Systems Constitutional: Negative HEENT: Negative Cardiac: As noted in HPI Pulmonary: As noted in HPI GI: Negative Genitourinary: Negative Muscular skeletal: Negative Skin: Negative Urologic: Negative Endocrine: Negative Hematologic: History of DVT and pulmonary embolism Psychiatric: Negative Neurologic: Negative Past Medical History Past Medical History: Coronary Artery Disease (CAD), Cancer, Deep Vein Thrombosis (DVT), GERD/Reflux, Pulmonary Embolus (PE) Additional Past Medical History / Comment(s): 2019 cardiac cath showed 10-20% blockage in LAD/pt, 04/2020 covid/pleurisy, bilateral PEs, DVT L leg, murmur, chronic back pain from fall/compression fracture L1, esophagitis, benign colon polyp, hypokalemia, low B12, bronchitis, basal cell skin cancer removed from [facility] and has another "spot". History of Any Multi-Drug Resistant Organisms: None Reported Past Surgical History: Bariatric Surgery, Breast Surgery, Cholecystectomy, Hysterectomy, Orthopedic Surgery Additional Past Surgical History / Comment(s): 2019 cardiac cath at [facility], breast augmentation/complication and removed then recently redone, L shoulder rotator cuff repair, bilateral feet bunionectomies/h ammer toe surgeries, gastric bypass, panniculectomy, skin cancer removal, EGD, colonoscopies. Past Anesthesia/Blood Transfusion Reactions: No Reported Reaction Smoking Status: Never smoker - Past Family History Mother History Unknown: Yes Father Family Medical History: Coronary Artery Disease (CAD), Hypertension, Myocardial Infarction (MN) Additional Family Medical History / Comment(s): Father had his first MN at the age of 52 yrs, he had CABG at the age of 62 years Medications and Allergies Home Medications Medication Instructions Recorded Confirmed Type Acetaminophen Tab [Tylenol] 500 mg PO Q6H PRN 04/19/21 04/20/21 History Ascorbic Acid [Vitamin C] 1,000 mg PO DAILY 04/19/21 04/20/21 History Cyanocobalamin [Vitamin B-12 1,000 mcg SQ Q30D 04/19/21 04/20/21 History Injection] FLUoxetine HCL [PROzac] 20 mg PO DAILY 04/19/21 04/20/21 History HYDROcodone/APAP 5-325MG [Deposit 1 tab PO QID PRN 04/19/21 04/20/21 History 5-325] Melatonin 20 mg PO HS 04/19/21 04/20/21 History Multivitamins, Thera [Multivitamin 1 tab PO DAILY 04/19/21 04/20/21 History (formulary)] Potassium Chloride ER [K-Dur 10] 10 meq PO DAILY #10 tab 04/19/21 04/20/21 Rx Vitamin B Complex 1 cap PO DAILY 04/19/21 04/20/21 History Vitamin E 400 unit PO DAILY 04/19/21 04/20/21 History Zinc 50 mg PO DAILY 04/19/21 04/20/21 History Cholecalciferol (Vitamin D3) 125 mcg PO DAILY 04/20/21 04/20/21 History [Vitamin D3 (125 MCG = 5,000 IU)] Aspirin 81 mg PO DAILY #30 tab 04/21/21 Rx Atorvastatin [Lipitor] 40 mg PO HS #30 tab 04/21/21 Rx Metoprolol Succinate (ER) [Toprol 25 mg PO DAILY #30 tab 04/21/21 Rx XL] Nitroglycerin Sl Tabs [Nitrostat] 0.4 mg SUBLINGUAL Q5M PRN #30 tab 04/21/21 Rx Allergies Allergy/AdvReac Type Severity Reaction Status Date / Time soybean Allergy Unknown Verified 04/20/21 08:31 Childhood Physical Exam Vitals: Vital Signs Temp Pulse Resp BP Pulse Ox 04/21/21 16:00 98.2 F 82 16 102/69 97 04/21/21 12:28 76 04/21/21 11:31 76 18 112/73 98 04/21/21 08:00 98.1 F 76 18 115/79 95 04/21/21 05:27 95 04/21/21 04:00 98.9 F 77 18 133/72 99 04/21/21 00:00 98.3 F 73 20 131/80 97 04/20/21 20:00 98.4 F 80 18 114/75 98 Intake and Output 04/21/21 04/21/21 04/21/21 06:59 14:59 22:59 Intake Total 1320 120 Balance 1320 120 Intake: Intake, IV Titration 600 Amount Sodium Chloride 0.9% 1, 600 000 ml @ 75 mls/hr IV . [id number] [facility], [facility] Rx#:[id number] Oral 720 120 Other: # Voids 2 1 Physical Exam: Revealed 61-year-old female in no distress Head: Atraumatic normocephalic HEENT:[Neck is supple.] [No neck masses.] [No thyromegaly.] [No JVD.] Chest: [Clear throughout, no crackles, no rhonchi, no wheezes.] Cardiac Exam: [Normal S1 and S2, no S3 gallop, no murmur.] Abdomen: [Soft, nontender, no megaly, no rebound, no guarding, normal bowel sounds.] Extremities: [No clubbing, no edema, no cyanosis.] Good pulses bilaterally. No tenderness in the calf regions. Neurological Exam: [No focal neurologic deficit.] Alert oriented 3 Psychiatric: Normal mood affect and normal mental status examination. Skin: No rashes. Results - Laboratory Findings CBC and BMP: 04/21/21 07:13 04/20/21 15:20 PT/INR, D-dimer PT 10.3 sec (9.0-12.0) 04/21/21 07:13 INR 1.0 (<1.2) 04/21/21 07:13 D-Dimer 1.11 mg/L FEU (<0.60) H 04/21/21 07:13 Abnormal lab findings: Abnormal Labs 04/20/21 04/20/21 04/20/21 04:19 04:19 04:19 D-Dimer 0.85 H Sodium 136 L Potassium 3.0 L Chloride 96 L Carbon Dioxide BUN 21 H Glucose 114 H Magnesium 1.4 L Total Bilirubin 1.6 H Alkaline Phosphatase 196 H Troponin I 0.214 H* Cholesterol HDL Cholesterol 04/20/21 04/20/21 04/20/21 08:49 10:09 15:20 D-Dimer Sodium 135 L Potassium Chloride Carbon Dioxide 32 H BUN 30 H Glucose 100 H Magnesium Total Bilirubin Alkaline Phosphatase Troponin I 0.206 H* 0.179 H* Cholesterol HDL Cholesterol 04/21/21 04/21/21 07:13 07:13 D-Dimer 1.11 H Sodium Potassium Chloride Carbon Dioxide BUN Glucose Magnesium Total Bilirubin Alkaline Phosphatase Troponin I Cholesterol 214.00 H HDL Cholesterol 92.70 H - Diagnostic Findings CT scan - chest: image reviewed (As noted in HPI.) Assessment and Plan Assessment: Impression: Abnormal CT angiogram of the chest suggestive of either acute or old chronic thromboembolic disease. However considering the patient's symptoms and history, I am strongly recommending that we transition heparin to Eliquis or Xarelto, and discharge the patient home for at least 3 months course of treatment and would strongly recommend repeat CT angiogram of the chest in 3 months. Patient will be following up with her director case out of town I believe in [place]. Non-obstructive coronary artery disease Possible cardiac arrhythmia based on the clinical history, but not seen on the monitor while inpatient. History of deep vein thromboses and pulmonary embolism History of GERD. Status post cardiac catheterization with evidence of significant obstructive coronary artery disease Recommendation: Again I am recommending transitioning heparin to Eliquis or Xarelto and could be discharged home , must follow-up with her director case and repeat CT angiogram of the chest in 3 months. We will sign off and see the patient on when necessary basis. Time with Patient: Greater than 30
[2021-04-21] MEDS: MELATONIN 5 MG TABLET PO SCH (21:01)
[2021-04-22 03:08] LABS: Basophils % (A) 1 %; Eosinophils # (A) 0.4 k/uL (0-0.7); Eosinophils % (A) 9 %; HCT 37.3 % (34.0-46.0); HGB 12.4 gm/dL (11.4-16.0); Lymphocytes # (A) 1.4 k/uL (1.0-4.8); Lymphocytes % (A) 31 %; MCH 32.8 pg (25.0-35.0); MCHC 33.3 g/dL (31.0-37.0); MCV 98.3 fL (80.0-100.0); Mean Platelet Volume 8.3; Monocytes # (A) 0.3 k/uL (0-1.0); Monocytes % (A) 6 %; Neutrophils # (A) 2.3 k/uL (1.3-7.7); Neutrophils % (A) 50 %; Platelet Count 195 k/uL (150-450); RBC 3.79 m/uL (3.80-5.40); RDW 12.7 % (11.5-15.5); WBC 4.6 k/uL (3.8-10.6)
[2021-04-22 03:38] LABS: African American GFR (CKD) >90 (>60 ml/min/1.73 sqM); Anion Gap 4 mmol/L; Blood Urea Nitrogen 22 mg/dL (7-17); Calcium 8.7 mg/dL (8.4-10.2); Carbon Dioxide 28 mmol/L (22-30); Chloride 105 mmol/L (98-107); Glucose 90 mg/dL (74-99); Magnesium 2.1 mg/dL (1.6-2.3); Non-African American GFR(CKD) >90 (>60 ml/min/1.73 sqM); Potassium 4.2 mmol/L (3.5-5.1); Sodium 137 mmol/L (137-145)
[2021-04-22] MEDS: SODIUM CHLORIDE 0.9% 1,000 ML in EMPTY BAG 1 BAG IV SCH ×3 (07:59→17:23)
[2021-04-22] MEDS: HEPARIN SOD,PORK IN 0.45% NACL 25,000 UNIT in 0.45% NACL 1 250ML.BAG IV SCH (09:37)
[2021-04-22] MEDS: MULTIVITAMINS, THERA 1 EACH TAB PO SCH (09:40)
[2021-04-22] MEDS: VITAMIN E (DL,TOCOPHERYL ACET) 400 UNIT (180 MG) CAP PO SCH (09:40)
[2021-04-22] MEDS: ASPIRIN 81 MG PO SCH (09:40)
[2021-04-22] MEDS: SODIUM CHLORIDE 0.9% 1,000 ML IV SCH (09:40)
[2021-04-22] MEDS: FLUoxetine HCL 20 MG CAP PO SCH (09:41)
[2021-04-22] MEDS: ASCORBIC ACID 500 MG TAB PO SCH (09:41)
[2021-04-22] MEDS: CHOLECALCIFEROL 125 MCG (5000 IU) TABLET PO SCH (09:41)
[2021-04-22] MEDS: POTASSIUM CHLORIDE ER 10 MEQ TAB.ER.PRT PO SCH (09:41)
[2021-04-22] MEDS: ATORVASTATIN 40 MG TAB PO SCH (09:41)
[2021-04-22] MEDS: ZINC SULFATE 220 MG CAP PO SCH (09:41)
[2021-04-22] MEDS: METOPROLOL SUCCINATE (ER) 25 MG TAB.ER.24H PO SCH (09:41)
[2021-04-22] MEDS: SUCRALFATE 1 GM TAB PO SCH ×2 (12:40→17:17)
[2021-04-22] MEDS: APIXABAN 5 MG TAB PO SCH ×2 (12:40→21:36)
[2021-04-22] MEDS: CALCIUM CARBONATE LIQUID 500 MG/5 ML CUP PO SCH ×4 (12:40→21:32)
[2021-04-22] MEDS: PANTOPRAZOLE 40 MG TABLET PO SCH (12:40)
[2021-04-22 12:58] LABS: Basophils % (A) 1 %; Eosinophils # (A) 0.3 k/uL (0-0.7); Eosinophils % (A) 6 %; HCT 39.6 % (34.0-46.0); HGB 13.2 gm/dL (11.4-16.0); Lymphocytes # (A) 1.2 k/uL (1.0-4.8); Lymphocytes % (A) 26 %; MCH 32.6 pg (25.0-35.0); MCHC 33.3 g/dL (31.0-37.0); Mean Platelet Volume 8.3; Monocytes # (A) 0.3 k/uL (0-1.0); Monocytes % (A) 6 %; Neutrophils # (A) 2.7 k/uL (1.3-7.7); Neutrophils % (A) 59 %; Platelet Count 211 k/uL (150-450); RBC 4.04 m/uL (3.80-5.40); RDW 12.5 % (11.5-15.5); WBC 4.6 k/uL (3.8-10.6)
--- NOTE | 2021-04-22 13:04 | P.PN ---
Subjective Progress Note Date: 04/22/21 Pt appears quite manic today and is hyperverbal. Has many concerns about discharge: 1) "all the flights are cancelled and I can't get back to [place]," 2) "Marcos is hurting and has hx of esophagitis and gastric bypass, and PTT was high bc of heparin gtt, so I must be bleeding," 3) "can't stay with cousins bc of COVID" I did look up flight tickets and there appear to be many options available from [facility] to [place]; when I explained this to her, she said that she watches the news and knows that the airlines will cancel these flights despite them being listed as available. Also, she apparently can only fly with [employer], which I find even more strange because [employer] has not cancelled any flights due to Omicron, rather the news is reporting cancellations with [employer], [employer], and [employer]. I did reassure her that we will rule out bleed by making sure no drop in hgb, which can be accomplished today; I also mentioned that high PTT from heparin is inside target range for PE, and is also an extremely quick medication to wear off, and will likely normalize by noon. She also has not had any stools that we can test for blood since FOBT order was placed by cardiology yesterday, and this would not be the case if she was having significant bleeding. Regardless, we started her on sucralfate, tums, and PPI. COVID quarantine concerns are not logical as there is COVID everywhere, but especially in the hospital at the moment, and also because she could stay in a hotel if her concerns were that high about transmissibility. I was not able to reassure her that she could be discharged today, and she is unwilling to start the planning process to be discharged tomorrow until she is sure she's not bleeding. We will repeat CBC tonight and tomorrow. I did prescribe an Eliquis starter pack to our pharmacy and asked that her meds be picked up today in preparation for her being discharged tomorrow morning. Objective - Vital Signs Vital signs: Vital Signs Temp 98.2 F 04/22/21 12:46 Pulse 90 04/22/21 12:46 Resp 17 04/22/21 12:46 BP 130/78 04/22/21 12:46 Pulse Ox 97 04/22/21 12:46 Intake & Output 04/21/21 04/22/21 04/22/21 18:59 06:59 18:59 Intake Total 240 199.863 530.137 Balance 240 199.863 530.137 Weight 91.8 kg Intake: Intake, IV Titration 199.863 50.137 Amount Heparin Sod,Pork in 0.45% 199.863 50.137 NaCl 25,000 unit In 0.45 % NaCl 1 250ml.bag @ 18 UNITS/KG/HR 15.758 mls/hr IV .[id number] [facility] Rx#: [id number] Oral 240 480 Other: Voiding Method Toilet Toilet # Voids 1 0 - Exam Gen: awake, alert HEENT: normocephalic, atraumatic, good hearing acuity, moist mucous membranes Resp: good air exchange, breathing comfortably with no accessory muscle use CVS: good distal perfusion x 4, GI: soft, NTTP, ND : no SPT, no CVAT, gong catheter not present MSK: Bilateral pitting edema, no clubbing Neuro: non-focal, moving all extremities Psych: hyperverbal, anxious mood - Labs CBC & Chem 7: 04/22/21 02:23 04/22/21 02:23 Labs: Abnormal Lab Results - Last 24 Hours (Table) 04/21/21 04/22/21 04/22/21 Range/Units 19:07 02:23 02:23 RBC 3.79 L (3.80-5.40) m/uL APTT 84.2 H (22.0-30.0) sec BUN 22 H (7-17) mg/dL 04/22/21 04/22/21 Range/Units 02:23 09:34 RBC (3.80-5.40) m/uL APTT 84.6 H 35.8 H (22.0-30.0) sec BUN (7-17) mg/dL Assessment and Plan Assessment: Nonobstructive coronary artery disease Lower extremity edema Acute on Chronic Pulmonary Embolism -Admit inpatient, telemetry -Cardiology consult -Metoprolol -Aspirin, statin -Eliquis -D/c heparin gtt, repeat PTT until it normalizes -repeat CBC today and again tomorrow to ensure no significant drop -Nitroglycerin when necessary -Hold home hydrochlorothiazide -Troponins have peaked, can stop trending Hypertension Mood disorder -Hold home hydrochlorothiazide, started metoprolol -Continue home Prozac -Hold home naproxen Patient is a full code
--- NOTE | 2021-04-22 17:20 | P.PN ---
Subjective Progress Note Date: 04/22/21 This 61-year-old female was admitted to the hospital with complaints of chest pain and abnormal troponins. She had a cardiac catheterization by Dr. Duron from the right groin and was found to have none active coronary artery disease. Patient is advised Max medical therapy. Because of high d-dimer values. Patient had a computed tomography scan which was size to possible pulmonary emboli. Patient was seen by pulmonology who advised that she patient be continued on anti-cognition therapy and have a repeat computed tomography scan be done by her electromechanical equipment assembler/hall tender. Patient has been on heparin. Patient is concerned about bleeding. Because of her recent cardiac catheterization and puncture in the femoral artery. Her groin is soft without any hematoma. Patient also expresses concern about GI bleeding and possible use of ascites. Patient's hemoglobin and is being watched. It is planned that patient be discharged home tomorrow on anti-cognition therapy. She will continue on beta blockers for blood pressure control and also for ischemic heart disease. We'll following her as needed. Objective - Vital Signs Vital signs: Vital Signs Temp 98.2 F 04/22/21 12:46 Pulse 90 04/22/21 12:46 Resp 17 04/22/21 12:46 BP 130/78 04/22/21 12:46 Pulse Ox 97 04/22/21 12:46 Intake & Output 04/21/21 04/22/21 04/22/21 18:59 06:59 18:59 Intake Total 240 033.118 9438.137 Balance 240 640.148 6725.137 Weight 91.8 kg Intake: Intake, IV Titration 199.863 50.137 Amount Heparin Sod,Pork in 0.45% 199.863 50.137 NaCl 25,000 unit In 0.45 % NaCl 1 250ml.bag @ 18 UNITS/KG/HR 15.758 mls/hr IV .[id number] [facility] Rx#: [id number] Oral 240 960 Other: Voiding Method Toilet Toilet # Voids 1 0 - Exam GENERAL EXAM: Patient is alert and oriented and doesn't appear to be in any acute distress HEENT: Normocephalic. Normal reaction of pupils, equal size, normal range of extraocular motion. No erythema or exudates in the throat. NECK: No masses, no nuchal rigidity. CHEST: No chest wall deformity. LUNGS: Equal air entry with no crackles or wheeze. HEART: S1 and S2 normal with no audible mumurs or gallops. Regular rhythm, femorals equal on both sides.. ABDOMEN: No hepatosplenomegaly, normal bowel sounds, no guarding or rigidity. SKIN: No rashes CENTRAL NERVOUS SYSTEM: No focal deficits. EXTREMITIES: No cyanosis, clubbing or edema. - Labs CBC & Chem 7: 04/22/21 12:41 04/22/21 02:23 Labs: Abnormal Lab Results - Last 24 Hours (Table) 04/21/21 04/22/21 04/22/21 Range/Units 19:07 02:23 02:23 RBC 3.79 L (3.80-5.40) m/uL APTT 84.2 H (22.0-30.0) sec BUN 22 H (7-17) mg/dL 04/22/21 04/22/21 Range/Units 02:23 09:34 RBC (3.80-5.40) m/uL APTT 84.6 H 35.8 H (22.0-30.0) sec BUN (7-17) mg/dL Assessment and Plan (1) Chest pain Current Visit: Yes Status: Acute Code(s): R07.9 - CHEST PAIN, UNSPECIFIED SNOMED Code(s): 68322843 (2) CAD (coronary artery disease) Current Visit: Yes Status: Acute Code(s): I25.10 - ATHSCL HEART DISEASE OF [place] CORONARY ARTERY W/O ANG PCTRS SNOMED Code(s): 23234176 (3) Pulmonary embolism Current Visit: Yes Status: Acute Code(s): I26.99 - OTHER PULMONARY EMBOLISM WITHOUT ACUTE COR PULMONALE SNOMED Code(s): 29705800 Plan: Patient is admitted to the hospital with chest pain and abnormal troponin. Had a cardiac catheterization and was found to have noncritical coronary artery disease. Patient is advised maximum medical therapy. There was questionable pulmonary embolism. Patient is being treated with anticoagulation therapy with the plan to have a repeat computed tomography scan in 3 months and follow-up with her own hall tender. We'll be following her on when necessary basis
[2021-04-22 21:28] VITALS: RESP 18
[2021-04-22] MEDS: HYDROcodone/APAP 5-325MG 1 EACH TAB PO PRN (21:36)
[2021-04-22] MEDS: MELATONIN 5 MG TABLET PO SCH (21:36)
[2021-04-23] MEDS: SODIUM CHLORIDE 0.9% 1,000 ML in EMPTY BAG 1 BAG IV SCH (06:06)
[2021-04-23] MEDS: SODIUM CHLORIDE 0.9% 1,000 ML IV SCH (06:06)
[2021-04-23] MEDS: SUCRALFATE 1 GM TAB PO SCH (06:27)
[2021-04-23] MEDS: PANTOPRAZOLE 40 MG TABLET PO SCH (06:28)
[2021-04-23 07:20] LABS: Basophils % (A) 1 %; Eosinophils # (A) 0.3 k/uL (0-0.7); Eosinophils % (A) 7 %; HCT 39.4 % (34.0-46.0); HGB 12.8 gm/dL (11.4-16.0); Lymphocytes # (A) 0.7 k/uL (1.0-4.8); Lymphocytes % (A) 16 %; MCH 32.1 pg (25.0-35.0); MCHC 32.4 g/dL (31.0-37.0); MCV 98.9 fL (80.0-100.0); Monocytes # (A) 0.3 k/uL (0-1.0); Monocytes % (A) 7 %; Neutrophils # (A) 3.2 k/uL (1.3-7.7); Neutrophils % (A) 68 %; Platelet Count 190 k/uL (150-450); RBC 3.98 m/uL (3.80-5.40); RDW 12.5 % (11.5-15.5); WBC 4.6 k/uL (3.8-10.6)
[2021-04-23 07:40] LABS: African American GFR (CKD) >90 (>60 ml/min/1.73 sqM); Anion Gap 7 mmol/L; Blood Urea Nitrogen 14 mg/dL (7-17); Calcium 9.5 mg/dL (8.4-10.2); Carbon Dioxide 27 mmol/L (22-30); Chloride 104 mmol/L (98-107); Glucose 102 mg/dL (74-99); Magnesium 1.9 mg/dL (1.6-2.3); Non-African American GFR(CKD) >90 (>60 ml/min/1.73 sqM); Potassium 4.6 mmol/L (3.5-5.1); Sodium 138 mmol/L (137-145)
[2021-04-23] MEDS: APIXABAN 5 MG TAB PO SCH (09:08)
[2021-04-23] MEDS: CHOLECALCIFEROL 125 MCG (5000 IU) TABLET PO SCH (09:08)
[2021-04-23] MEDS: MULTIVITAMINS, THERA 1 EACH TAB PO SCH (09:08)
[2021-04-23] MEDS: VITAMIN E (DL,TOCOPHERYL ACET) 400 UNIT (180 MG) CAP PO SCH (09:08)
[2021-04-23] MEDS: ATORVASTATIN 40 MG TAB PO SCH (09:08)
[2021-04-23] MEDS: ASPIRIN 81 MG PO SCH (09:08)
[2021-04-23] MEDS: METOPROLOL SUCCINATE (ER) 25 MG TAB.ER.24H PO SCH (09:08)
[2021-04-23] MEDS: ZINC SULFATE 220 MG CAP PO SCH (09:08)
[2021-04-23] MEDS: FLUoxetine HCL 20 MG CAP PO SCH (09:08)
[2021-04-23] MEDS: POTASSIUM CHLORIDE ER 10 MEQ TAB.ER.PRT PO SCH (09:08)
[2021-04-23] MEDS: ASCORBIC ACID 500 MG TAB PO SCH (09:08)
[2021-04-23] MEDS: CALCIUM CARBONATE LIQUID 500 MG/5 ML CUP PO SCH (09:08)
[2021-04-23 09:12] VITALS: BP 117/71; PULSE 72; TEMP 98
--- NOTE | 2021-04-23 11:30 | P.DS ---
Providers Date of admission: 04/20/21 06:51 Expected date of discharge: 04/23/21 Attending physician: Onelia Narvaez MD Consults: 04/20/21 06:51 Consult Physician Urgent Consulting Provider: Zoila Doe Consult Reason/Comments: Acute Coronary syndrome Do you want consulting provider notified?: Yes 04/21/21 13:32 Consult Physician Routine Consulting Provider: Ricky Mccain Consult Reason/Comments: Questionable Acute PE on CTA Do you want consulting provider notified?: Yes Primary care physician: Physician Nonstaff Hospital Course: Discharge Diagnosis: Pulmonary emboli Elevated troponin, acute coronary event ruled out cardiac cath revealing nonobstructive coronary artery disease Nonobstructive coronary artery disease Lower extremity edema Hypertrophic cardiomyopathy, severe left ventricular hypertrophy Hospital Course: Patient is a 61-year-old female with a past medical history of hypertension and depression. She presented to the emergency department on 04/20/21 with a chief complaint of bilateral lower extremity edema and chest pressure. Patient was found to have an elevated troponin of 0.214, 0.206, and 0.179. EKG showing normal sinus rhythm at 91 bpm with left ventricular hypertrophy with early repolarization. She was admitted under our services with consultation to cardiology. A lipid profile was drawn revealing an elevated total cholesterol of 214 and patient was started on atorvastatin. Echocardiogram completed revealing normal EF between 60 and 65% with severe left ventricular hypertrophy and inability to fully visualized valves or estimate RVSP secondary to inadequate TR jet spectral Doppler profile. Patient underwent a cardiac catheterization with Dr. Duron on 04/20/21 which revealed mild to moderate nonobstructive coronary artery disease involving mid LAD and recommending patient to make diet and lifestyle modifications to eliminate modifiable risk factors and start on aspirin, atorvastatin, metoprolol for treatment of her left ventricular hypertrophy A CT scan was then completed positive for chronic PE with possible component of an acute PE. Resulting from this, pt was started on heparin infusion on 04/21/21 and transitioned to oral anticoagulation with Eliquis on 04/22/21. Patient was seen and evaluated by casing sewer stating CT chest suggestive of either acute or old chronic thromboembolic disease and recommending patient have a repeat CT angiogram of her chest in 3 months, ken ent will need to follow up with casing sewer in her hometown in [place]. CTA also revealed a small indeterminate hypodensity noted on CT that was too small to characterize, recommending patient follow up outpatient for liver ultrasound upon returning home to [place] as well. Pt is medically stable for discharge at this time and has also been cleared by pulmonology and cardiology for discharge. She is being discharged home on Eliquis, aspirin, atorvastatin, metoprolol succinate, and Protonix. Patient seen and examined at bedside. Morning labs reviewed. CBC and BMP were unremarkable. Patient's vital signs unremarkable with heart rate 72, respiratory rate 18, blood pressure 117/71 and SpO2 of 99% on room air. Patient reports that she did have a rough night because she was very "gassy" but that this has resolved. Patient denied having any chest pain, palpitations, shortness of breath, or experiencing any numbness/tingling/weakness in her extremities. Cardiac cath access site to right groin was assessed and showed no signs of bruising, bleeding, erythema or hematoma. Patient updated on plans for discharge and expressed that she felt she should be kept in the hospital until her pulmonary embolism has completely resolved, patient expressing that she did not feel it was safe to discharge home on blood thinners with a blood clot as they should remain in the hospital until this is fully resolved. Patient educated that this could take months and that she will need to follow up outpatient as recommended when she returns to [place]. Expressing her concerns that she does not want to sit in an airport all day on [place] because too many flights get canceled and that she should not have to sit in an airport all day. Patient does have family locally that she was visiting and may also go to a hotel. Patient again stated that she is medically stable for discharge and has been cleared by medicine, pulmonology, and cardiology for discharge. Vital signs reviewed and stable. General: Nontoxic, no distress and appears stated age. Derm: Skin warm and dry, normal coloration for ethnicity. Head: Atraumatic, normocephalic and symmetric. Eyes: EOMs intact, no lid lag, and anicteric sclera Mouth: no lip lesions, mucus membranes moist Cardiovascular: regular rate and rhythm with normal S1S2, no murmur, positive posterior tibial pulses bilaterally, and cap refill < 2 seconds. Lungs: Respirations even, regular, and unlabored on room air. Lungs CTA bilaterally, no rhonchi, no rales, no wheezing, and no accessory muscle usage. Abdominal: soft, nontender to palpation, no guarding, no appreciable organomegaly Ext: ROM intact. No gross muscle atrophy, no edema, no contractures Neuro: Speech clear, face symmetrical and CN II-XII grossly intact with no noted focal neuro deficits Psych: Alert and oriented to person, place, time, and situation. Appropriate and pleasant affect. A total of 45 minutes of time were spent preparing this complex discharge s chandler. Assessment: Gen: awake, alert HEENT: normocephalic, atraumatic, good hearing acuity, moist mucous membranes Resp: good air exchange, breathing comfortably with no accessory muscle use CVS: good distal perfusion x 4, GI: soft, NTTP, ND : no SPT, no CVAT, gong catheter not present MSK: Bilateral pitting edema, no clubbing Neuro: non-focal, moving all extremities Psych: cooperative, euthymic mood Patient Condition at Discharge: Good Plan - Discharge Summary Discharge Rx Participant: No New Discharge Prescriptions: New Aspirin 81 mg PO DAILY #30 tab Atorvastatin [Lipitor] 40 mg PO HS #30 tab Nitroglycerin Sl Tabs [Nitrostat] 0.4 mg SUBLINGUAL Q5M PRN #30 tab PRN Reason: Chest Pain Metoprolol Succinate (ER) [Toprol XL] 25 mg PO DAILY #30 tab Apixaban [Eliquis Starter Pack (for VTE)] 5 - 10 mg PO DIRECTED 30 Days #1 each Pantoprazole [Protonix] 40 mg PO AC-BRKFST 30 Days #30 tab Continue Vitamin B Complex 1 cap PO DAILY Ascorbic Acid [Vitamin C] 1,000 mg PO DAILY Zinc 50 mg PO DAILY Vitamin E 400 unit PO DAILY Multivitamins, Thera [Multivitamin (formulary)] 1 tab PO DAILY Melatonin 20 mg PO HS FLUoxetine HCL [PROzac] 20 mg PO DAILY Cyanocobalamin [Vitamin B-12 Injection] 1,000 mcg SQ Q30D Potassium Chloride ER [K-Dur 10] 10 meq PO DAILY #10 tab Cholecalciferol (Vitamin D3) [Vitamin D3 (125 MCG = 5,000 IU)] 125 mcg PO DAILY Acetaminophen Tab [Tylenol] 500 mg PO Q6H PRN PRN Reason: Pain HYDROcodone/APAP 5-325MG [Reese 5-325] 1 tab PO QID PRN PRN Reason: Pain Discontinued Naproxen Sodium [Aleve] 220 mg PO BID hydroCHLOROthiazide [Hydrodiuril] 25 mg PO DAILY Discharge Medication List Acetaminophen Tab [Tylenol] 500 mg PO Q6H PRN 04/19/21 [History] Ascorbic Acid [Vitamin C] 1,000 mg PO DAILY 04/19/21 [History] Cyanocobalamin [Vitamin B-12 Injection] 1,000 mcg SQ Q30D 04/19/21 [History] FLUoxetine HCL [PROzac] 20 mg PO DAILY 04/19/21 [History] HYDROcodone/APAP 5-325MG [Reese 5-325] 1 tab PO QID PRN 04/19/21 [History] Melatonin 20 mg PO HS 04/19/21 [History] Multivitamins, Thera [Multivitamin (formulary)] 1 tab PO DAILY 04/19/21 [History] Potassium Chloride ER [K-Dur 10] 10 meq PO DAILY #10 tab 04/19/21 [Rx] Vitamin B Complex 1 cap PO DAILY 04/19/21 [History] Vitamin E 400 unit PO DAILY 04/19/21 [History] Zinc 50 mg PO DAILY 04/19/21 [History] Cholecalciferol (Vitamin D3) [Vitamin D3 (125 MCG = 5,000 IU)] 125 mcg PO DAILY 04/20/21 [History] Aspirin 81 mg PO DAILY #30 tab 04/21/21 [Rx] Atorvastatin [Lipitor] 40 mg PO HS #30 tab 04/21/21 [Rx] Metoprolol Succinate (ER) [Toprol XL] 25 mg PO DAILY #30 tab 04/21/21 [Rx] Nitroglycerin Sl Tabs [Nitrostat] 0.4 mg SUBLINGUAL Q5M PRN #30 tab 04/21/21 [Rx] Apixaban [Eliquis Starter Pack (for VTE)] 5 - 10 mg PO DIRECTED 30 Days #1 each 04/22/21 [Rx] Pantoprazole [Protonix] 40 mg PO AC-BRKFST 30 Days #30 tab 04/23/21 [Rx] Follow up Appointment(s)/Referral(s): Nonstaff,Physician [Primary Care Provider] - 1-2 days (Please follow up with primary care provider in [place]) Valdemar Duron MD [STAFF PHYSICIAN] - 1 Week (Patient is from [place], please follow up with net web application developer at home. ) Patient Instructions/Handouts: *Surgery [facility] - After Heart Catheterization - Agricultural Engineering Technician Instructions, Left Heart Catheterization (DC), Procedural Sedation (ED), Angio-Seal (DC) Activity/Diet/Wound Care/Special Instructions: Activity: As tolerated. Take breaks as needed. Diet: Heart healthy and carb consistent diet. Avoid salts, or foods with hidden salts such as canned or boxed foods and frozen dinners. Extra salt makes your heart work harder and traps the fluid in your body for longer. Special Instructions: Take all of your medications as directed and remember to keep all of your doctor's appointments and follow-up as needed. Follow up with your Curtain Cleaner in [place] in 1-2 weeks. You will need a Follow up CT Chest for PE in 3 months, if bloot clot still present, you will need to see a PH specialist. You will also need an outpatient ultrasound completed of your liver when you return home to [facility], as there was a small indeterminate hypodensity noted on CT that was too small to characterize, and radiologist recommending outpatient follow up with ultrasound to further evaluate or ensure resolution. Thank you for allowing us to participate in your care, it was truly a pleasure having you for our patient!!! Discharge Disposition: HOME SELF-CARE
[2021-04-29] MEDS ORDERED: APIXABAN 5 MG TAB PO SCH (21:00)
== END 2021-04-23 14:39 | disposition home or self-care (01) | DRG 286 ==
LOC: EC 03:29 → 3SCARD 06:51
PROVIDERS: ADMIT Internal Medicine; ATTEND Internal Medicine
PROC: B2111ZZ Fluoroscopy of Multiple Coronary Arteries using Low Osmolar Contrast (ICD-10-PCS; 2021-04-20)
PROC: B2161ZZ Fluoroscopy of Right and Left Heart using Low Osmolar Contrast (ICD-10-PCS; 2021-04-20)
PROC: B41F1ZZ Fluoroscopy of Right Lower Extremity Arteries using Low Osmolar Contrast (ICD-10-PCS; 2021-04-20)
PROC: 4A023N7 Measurement of Cardiac Sampling and Pressure, Left Heart, Percutaneous Approach (ICD-10-PCS; principal; 2021-04-20 10:55)
DX: I25.10 Atherosclerotic heart disease of native coronary artery without angina pectoris (principal); I26.99 Other pulmonary embolism without acute cor pulmonale; I27.82 Chronic pulmonary embolism; I42.2 Other hypertrophic cardiomyopathy; F39 Unspecified mood [affective] disorder; I08.0 Rheumatic disorders of both mitral and aortic valves; I10 Essential (primary) hypertension; Z79.01 Long term (current) use of anticoagulants; Z79.82 Long term (current) use of aspirin; Z79.899 Other long term (current) drug therapy; Z82.49 Family history of ischemic heart disease and other diseases of the circulatory system; Z85.828 Personal history of other malignant neoplasm of skin; Z86.718 Personal history of other venous thrombosis and embolism; Z87.19 Personal history of other diseases of the digestive system; Z90.710 Acquired absence of both cervix and uterus; Z98.84 Bariatric surgery status; E87.6 Hypokalemia; F32.A Depression, unspecified; F41.9 Anxiety disorder, unspecified; G89.29 Other chronic pain; K21.9 Gastro-esophageal reflux disease without esophagitis
CPT/HCPCS: 36415; 71045; 71275; 80048; 80053; 80061; 82150; 82272; 83690; 83721; 83735; 83880; 84484; 85025; 85379; 85610; 85730; 87635; 93005; 93306; 93458; 96365; 96375; 99285